=== PATIENT | female | born 1995 | race Two or more races ===

== ENCOUNTER 2025-07-03 14:21 | Emergency (ER) | payer MEDICAID, OTHER ==
[~2025-07-03] VITALS: Ht 162.6 cm; Wt 81.8 kg
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
[2025-07-03 16:11] LABS: Hematocrit 37.8 % (36.0-46.0); Hemoglobin 12.9 g/dL (12.2-16.2); Mean Corpuscular Hemoglobin 30.3 pg (28.0-32.0); Mean Corpuscular Volume 88.8 fL (80.0-100.0); Nucleated Red Blood Cells % 0.1 %
[2025-07-03] MEDS ORDERED: ACET-1304 PO (16:15)
[2025-07-03 16:21] LABS: Chloride 103 mmol/L (98-107); Potassium 3.9 mmol/L (3.5-5.1); Sodium 138 mmol/L (136-145)
[2025-07-03 16:22] LABS: Anion Gap 11 (5-15); Calcium 9.2 mg/dL (8.7-10.4); Carbon Dioxide 24 mmol/L (20-31)
[2025-07-03 16:27] LABS: BUN/Creatinine Ratio 26.9 (10.0-20.0); Blood Urea Nitrogen 18 mg/dL (9-23); Glucose 80 mg/dL (74-106)
[2025-07-03 16:43] VITALS: BP 138/88; PULSE 84; RESP 18; TEMP 98.1; O2SAT 99
== END 2025-07-03 16:51 | disposition home or self-care (01) ==
LOC: EDBD 14:21 → ER 14:21
DX: O9A.212 Injury, poisoning and certain other consequences of external causes complicating pregnancy, second trimester (principal); R10.2 Pelvic and perineal pain; S39.91XA Unspecified injury of abdomen, initial encounter; Z86.73 Personal history of transient ischemic attack (TIA), and cerebral infarction without residual deficits; Z98.890 Other specified postprocedural states; Z79.899 Other long term (current) drug therapy; Z3A.15 15 weeks gestation of pregnancy; Y08.89XA Assault by other specified means, initial encounter; Y93.89 Activity, other specified; Y92.89 Other specified places as the place of occurrence of the external cause; Y99.8 Other external cause status
CPT/HCPCS: 36415; 76700; 76801; 80048; 84702; 85025